=== PATIENT | female | born 1975 | race Caucasian/White ===

== ENCOUNTER 2017-04-03 00:38 | Inpatient (IN) | payer BC, OTHER ==
[~2017-04-03] VITALS: Ht 165.1 cm; Wt 80.1 kg
[2017-04-03] VITALS (9 sets, daily range): BP systolic 109–134; BP diastolic 66–77; PULSE 64–86; TEMP 36.5–36.9; O2SAT 97–100; Ht 165.1 cm; Wt 80.1 kg
[2017-04-03] MEDS ORDERED: SODIUM CHLORIDE 0.9% 1000ML 1,000 ML IV STA ×2 (00:51)
[2017-04-03] MEDS ORDERED: MoRPHine SULFATE 4 MG/ML 1 ML CARP\\VIAL IV STA (00:51)
[2017-04-03] MEDS ORDERED: ONDANSETRON INJ 2 MG/ML 2 ML VIAL IV STA ×2 (00:51→02:11)
[2017-04-03 01:41] LABS: BASO % 0.4 %; BASO ABS # 0.04 K/uL (0-0.2); COMPLETE YES; EOS % 3.4 %; HEMATOCRIT 41.5 % (37-47); IG% 0.2 %; LYMPH % 24.5 %; LYMPH ABS # 2.79 K/uL (1.2-3.4); MEAN CORPUSCULAR HEMOGLOBIN 32.7 pg (25-34); MEAN CORPUSCULAR HGB CONC 34.5 g/dl (32-36); MEAN PLATELET VOLUME 11.1 fL (7.4-10.4); MONO % 7.3 %; NEUT % 64.2 %; PLATELET COUNT 248 K/uL (130-400); RED BLOOD COUNT 4.37 M/uL (4.2-5.4); WHITE BLOOD COUNT 11.41 K/uL (4.8-10.8)
[2017-04-03 02:04] LABS: ALT/SGPT 26 U/L (12-78); AST/SGOT 16 U/L (15-37); BLOOD UREA NITROGEN 14 mg/dl (7-18); BUN/CREATININE RATIO 18.6 (10-20); CALCIUM 8.5 mg/dl (8.5-10.1); CARBON DIOXIDE 31 mmol/L (21-32); CHLORIDE 110 mmol/L (98-107); CREATININE 0.75 mg/dl (0.60-1.20); GLUCOSE 98 mg/dl (70-99); POTASSIUM 3.4 mmol/L (3.5-5.1); SODIUM 142 mmol/L (136-145)
[2017-04-03 02:09] LABS: ALKALINE PHOSPHATASE 78 U/L (45-117)
[2017-04-03] MEDS ORDERED: HYDROmorphone INJ 0.5 MG/0.5 ML SYR IV STA (02:11)
[2017-04-03 02:19] LABS: PREG INTERNAL NEGATIVE QC NEG CLEAR BACKGROUND; PREG INTERNAL POSITIVE QC POS CONTROL LINE
[2017-04-03] MEDS ORDERED: ATOR-22 PO (02:23)
[2017-04-03] MEDS ORDERED: PRLSR20 PO (02:23)
[2017-04-03] MEDS ORDERED: METOCLOPRAMIDE HCL INJ 5 MG/ML 2 ML VIAL IV STA (02:41)
[2017-04-03] MEDS ORDERED: DiphenhydrAMINE HCL 50 MG/ML VIAL IV STA (03:02)
[2017-04-03] MEDS ORDERED: ONDANSETRON INJ 2 MG/ML 2 ML VIAL IV PRN ×2 (03:15→08:15)
[2017-04-03] MEDS ORDERED: HYDROmorphone INJ 1 MG/ML SYR IV PRN (03:15)
[2017-04-03] MEDS ORDERED: CEFOXITIN 2000MG/60 ML D5W IV STA (03:21)
--- NOTE | 2017-04-03 03:36 | History and Physical ---
History & Physical Date Apr 03, 2017. Chief Complaint Right upper quadrant abdominal pain, nausea and vomiting History of Present Illness Davion Reis is a 41 year old woman who presents to the ED with complaint of right upper quadrant pain associated with nausea and vomiting. Patient states the pain first started 3 days ago, and has occurred every evening since that time. Prior to 3 days ago, she has never had the pain before. She was evaluated by her PCP at the onset of the pain, at which time a RUQ U/S was completed; per patient, the study was normal. She continued to have the pain every evening. Tonight the pain was more severe and associated with nausea and vomiting, so she presented to the ED. Pain does not seem to be associated with any certain foods. She has had intermittent episodes of diarrhea over the past few days, denies melena / hematochezia / acholic stools. Denies fever, chills, headaches, dizziness, vision changes, chest pain, SOB, dysuria or urinary symptoms, pain / numbness / swelling / tingling in extremities. Past history of a laparoscopic tubal ligation, no history of issues with anesthesia or bleeding complications. Past Medical/Surgical History Medical History: Hyperlipidemia Lumbago Tobacco use disorder Surgical History: Laparoscopic bilateral tubal ligation Allergies Coded Allergies: No Known Allergies (Verified , 04/03/17) Home Medications Scheduled Atorvastatin (Lipitor), 20 MG PO DAILY Omeprazole (Prilosec), 20 MG PO DAILY Physical Examination Skin: warm/dry, no rash Eyes: normal inspection, sclerae normal Head: normocephalic, atraumatic Neck: supple Respiratory/Chest: lungs clear, normal breath sounds, no respiratory distress Cardiovascular: regular rate, rhythm Abdomen / GI: normal bowel sounds, + pertinent finding (Tenderness to palpation in epigastric area, soft, no rebound / guarding) Back: normal inspection Extremities: normal inspection Neurologic/Psych: alert, oriented x 3 Addiitonal Comments: Lab Studies: WBC 11.41, Hgb 14.3, Hct 41.5, plt 248 Na 142, K 3.4, Cl 110, CO2 31, BUN 14, Cr 0.75, Glucose 98 Tbili 0.2 (Direct <0.1), AST 16, ALT 26, ALP 78, Lipase 177 Troponin <0.015 BHcg negative Imagin04/03/17 RUQ U/S: -Gallbladder wall thickening measuring 6.2mm with pericholecystic fluid and possible gallstone -Sonographic Velasco's sign negative -Normal CBD - measures 3mm -Concerning for acute cholecystitis 04/03/17 CXR: No acute abnormalities Diagnosis Acute Cholecystitis ASA Classification: ASA Class I Plan of Treatment Assessment: Davion Reis is a 41 year old woman who presents with symptoms and imaging findings consistent with acute cholecystitis. She has a mild leukocytosis without fever / chills; does not have elevation in bilirubin or liver enzymes to suggest biliary obstruction. Plan: -Admit to General Surgery service -Will plan for laparoscopic, possible open cholecystectomy -Pain and nausea control as needed -NPO for procedure, IVF hydration
[2017-04-03] MEDS: D5W AND 1/2NSS + 20MEQ KCL 1,000 ML IV SCH ×3 (06:00→20:42)
--- NOTE | 2017-04-03 06:19 | EMERGENCY ROOM VISIT NOTE ---
History First contact with patient: 00:42 Chief Complaint: ABDOMINAL PAIN Stated Complaint: PAIN IN UPPER STOMACH AND BACK, VOMITING Nursing Triage Summary: R upper abdominal pain that radiates to her back. was seen by PCP for similar symptoms. and r/o gallbladder. tonight pain worse and pt is vomiting. History of Present Illness The patient is a 41 year old female who presents to the Emergency Room with complaints of Intermittent right upper quadrant pain for the past week that comes and goes in severity currently 8 out of 10. Patient had pizza tonight for dinner. Pain is 8 out of 10. Nothing makes it better or worse. Patient states occasionally it radiates to her back described as aching. Patient had ultrasound earlier this week and does not know the results. Patient states she had some diarrhea earlier this week and is now resolved. Patient saw her family care doctor earlier this week for ultrasound and blood testing. She is to follow-up in a few days. Patient denies chest pain, dyspnea, fever, chills, cough, congestion, urinary symptoms. Patient had one episode of vomiting. Nonbloody [id number] nonbilious in nature. Patient is on well water. No recent antibiotics. No recent travel. No sick contacts. Review of Systems See HPI for pertinent positives & negatives. A total of 10 systems reviewed and were otherwise negative. Past Medical/Surgical History Medical Problems: (1) Acute cholecystitis (2) Bilateral tubal ligation (3) LUMBAGO (4) OVARIAN CYST NEC/NOS (5) TOBACCO USE DISORDER Family History Heart disease MOTHER Social History Smoking Status: Current Every Day Smoker Alcohol Use: none Drug Use: none Marital Status: Housing Status: lives with family Occupation Status: employed Current/Historical Medications Scheduled Atorvastatin (Lipitor), 20 MG PO DAILY Omeprazole (Prilosec), 20 MG PO DAILY Allergies Coded Allergies: No Known Allergies (Verified , 04/03/17) Physical Exam Vital Signs Date Time Temp Pulse Resp B/P (MAP) Pulse Ox O2 Delivery O2 Flow Rate FiO2 04/03/17 02:36 128/73 04/03/17 02:33 89 99 04/03/17 02:30 128/73 04/03/17 02:18 82 23 100 04/03/17 02:13 81 29 100 04/03/17 02:12 125/70 04/03/17 01:23 82 23 97 04/03/17 01:18 84 14 99 04/03/17 01:13 79 16 98 04/03/17 01:08 81 04/03/17 01:08 78 17 98 Room Air 04/03/17 01:04 98 Room Air 04/03/17 01:03 112/65 04/03/17 00:40 36.7 84 18 149/81 97 Room Air Physical Exam VITALS: Vitals are noted on the nurse's note and reviewed by myself. Vital signs stable. GENERAL: Pleasant female, in no acute distress, nondiaphoretic, well-developed well-nourished. SKIN: The skin was without rashes, erythema, edema, or bruising. There is no tenting of the skin. Capillary reflex less than 2 seconds. HEAD: Normocephalic atraumatic. EARS: External auditory canals clear, tympanic membranes pearly irvin without erythema or effusion bilaterally. EYES: Pupils equal round and reactive to light and accommodation. Conjunctivae without injection, sclerae without icterus. Extraocular movements intact. NOSE: Patent, turbinates without inflammation or discharge. MOUTH: Mucous membranes moist. Pharynx without erythema or exudate. Uvula midline. Airway patent. Tongue does not deviate. NECK: Supple without nuchal rigidity. No lymphadenopathy. No thyromegaly. Cervical spine is nontender. No JVD. HEART: Regular rate and rhythm without murmurs gallops or rubs. LUNGS: Clear to auscultation bilaterally without wheezes, rales or rhonchi. No dullness to percussion. No retractions or accessory muscle use. ABDOMEN: Positive bowel sounds x 4. Normal tympanic percussion. Soft, tender to palpation right upper quadrant, no CVA tenderness, without masses or organomegaly. No guarding or rebound tenderness. MUSCULOSKELETAL: No muscle atrophy, erythema, or edema noted. NEURO: Patient was alert and oriented to person place and time. Normal sensation to light and sharp touch. No focal neurological deficits. Medical Decision & Procedures Laboratory Results 04/03/17 01:07 Red Blood Count 4.37, Mean Corpuscular Volume 95.0, Mean Corpuscular Hemoglobin 32.7, Mean Corpuscular Hemoglobin Concent 34.5, Mean Platelet Volume 11.1, Neutrophils (%) (Auto) 64.2, Lymphocytes (%) (Auto) 24.5, Monocytes (%) (Auto) 7.3, Eosinophils (%) (Auto) 3.4, Basophils (%) (Auto) 0.4, Neutrophils # (Auto) 7.34, Lymphocytes # (Auto) 2.79, Monocytes # (Auto) 0.83, Eosinophils # (Auto) 0.39, Basophils # (Auto) 0.04 04/03/17 01:07 Test 04/03/17 01:07 White Blood Count 11.41 K/uL (4.8-10.8) Red Blood Count 4.37 M/uL (4.2-5.4) Hemoglobin 14.3 g/dL (12.0-16.0) Hematocrit 41.5 % (37-47) Mean Corpuscular Volume 95.0 fL (80-100) Mean Corpuscular Hemoglobin 32.7 pg (25-34) Mean Corpuscular Hemoglobin Concent 34.5 g/dl (32-36) Platelet Count 248 K/uL (130-400) Mean Platelet Volume 11.1 fL (7.4-10.4) Neutrophils (%) (Auto) 64.2 % Lymphocytes (%) (Auto) 24.5 % Monocytes (%) (Auto) 7.3 % Eosinophils (%) (Auto) 3.4 % Basophils (%) (Auto) 0.4 % Neutrophils # (Auto) 7.34 K/uL (1.4-6.5) Lymphocytes # (Auto) 2.79 K/uL (1.2-3.4) Monocytes # (Auto) 0.83 K/uL (0.11-0.59) Eosinophils # (Auto) 0.39 K/uL (0-0.5) Basophils # (Auto) 0.04 K/uL (0-0.2) RDW Standard Deviation 42.9 fL (36.4-46.3) RDW Coefficient of Variation 12.5 % (11.5-14.5) Immature Granulocyte % (Auto) 0.2 % Immature Granulocyte # (Auto) 0.02 K/uL (0.00-0.02) Anion Gap 1.0 mmol/L (3-11) Est Creatinine Clear Calc Drug Dose 105.3 ml/min Estimated GFR () 116.4 Estimated GFR (Non- 100.4 BUN/Creatinine Ratio 18.6 (10-20) Calcium Level 8.5 mg/dl (8.5-10.1) Total Bilirubin 0.2 mg/dl (0.2-1) Direct Bilirubin < 0.1 mg/dl (0-0.2) Aspartate Amino Transf (AST/SGOT) 16 U/L (15-37) Alanine Aminotransferase (ALT/SGPT) 26 U/L (12-78) Alkaline Phosphatase 78 U/L (45-117) Troponin I < 0.015 ng/ml (0-0.045) Total Protein 6.5 gm/dl (6.4-8.2) Albumin 3.2 gm/dl (3.4-5.0) Lipase 177 U/L (73-393) Human Chorionic Gonadotropin, Qual NEG (NEG) Medications Administered Medications (Trade) Dose Ordered Sig/Nhi Route Start Time Stop Time Status Last Admin Dose Admin Sodium Chloride 1,000 ml @ 999 mls/hr Q1H1M STAT IV 04/03/17 00:51 04/03/17 01:51 DC 04/03/17 01:11 999 MLS/HR Sodium Chloride 1,000 ml @ 125 mls/hr Q8H STAT IV 04/03/17 00:51 04/03/17 04:49 DC 04/03/17 02:23 125 MLS/HR Morphine Sulfate (MoRPHine SULFATE INJ) 4 mg NOW STAT IV 04/03/17 00:51 04/03/17 00:53 DC 04/03/17 01:15 4 MG Ondansetron HCl (Zofran Inj) 4 mg NOW STAT IV 04/03/17 00:51 04/03/17 00:53 DC 04/03/17 01:13 4 MG Hydromorphone HCl (Dilaudid Inj) 0.5 mg NOW STAT IV 04/03/17 02:11 04/03/17 02:12 DC 04/03/17 02:18 0.5 MG Ondansetron HCl (Zofran Inj) 4 mg NOW STAT IV 04/03/17 02:11 04/03/17 02:12 DC 04/03/17 02:16 4 MG Metoclopramide HCl (Reglan Inj) 5 mg NOW STAT IV 04/03/17 02:41 04/03/17 02:42 DC 04/03/17 02:47 5 MG Diphenhydramine HCl (Benadryl Inj) 12.5 mg NOW STAT IV 04/03/17 03:02 04/03/17 03:03 DC 04/03/17 03:14 12.5 MG Cefoxitin Sodium (Mefoxin 2000mg/ 60 ml D5W) 2,000 mg NOW STAT IV 04/03/17 03:21 04/03/17 03:22 DC 04/03/17 03:53 2,000 MG ED Course Prior records/ancillary studies reviewed. Triage Nursing notes reviewed. Additional history obtained from family The patient's history was concerning for abdominal pain. Differential diagnosis: Etiologies such as appendicitis, diverticulitis, PUD, biliary pathology, UTI, pancreatitis, obstruction, mesenteric ischemia, aortic pathology, infections, inflammatory bowel disease, renal colic, as well as others were entertained. Physical examination findings: As above. ER treatment provided: Morphine, Zofran, IV fluids On reassessment the patient felt better. Diagnostics interpreted by me: I obtain the records from [facility] and reviewed the patient's ultrasound report and laboratory testing. Patient had lactoferrin in her stool which appears to be a benign finding. Patient had no Escherichia coli or Campylobacter in her stool. Electrolyte panel was negative for acute findings. Ultrasound showed a contracted gallbladder with mildly thickened wall. ECG: Normal sinus, normal intervals, no acute ST-T wave changes. Impression normal sinus rhythm interpreted by myself The labs revealed neg trop Mild leukocytosis. Stable H&H Imaging studies: Ultrasound concerning for acute cholecystitis per stat radiology. Gallbladder wall thickening at 6.2 mm with pericholecystic fluid present Chest x-ray with no acute consolidation, pneumothorax or free air per my interpretation Consultation: A consultation was placed with the GS, Dr Gaytan. The case was discussed and diagnostics were reviewed. The patient was evaluated in the ER for further treatment. Exam and history seem consistent with acute cholecystitis. Patient was evaluated by surgery. She will be admitted to their service. Patient was well- appearing. She is neurovascularly and neurologically intact. She is afebrile and nontoxic.By the evaluation outlined above emergent etiologies such as appendicitis, diverticulitis, UTI, pancreatitis, obstruction, mesenteric ischemia, aortic pathology, infections, inflammatory bowel disease, renal colic , as well as others were deemed relatively unlikely. The pt informed about the findings as listed above. All questions were answered and pleased with the treatment. . Case reviewed with my attending. Medical Decision As above Impression Primary Impression: Acute cholecystitis Departure Information Dispostion Being Evaluated By Surgeon Condition GOOD Referrals Kim Cuevas M.D. (PCP) Patient Instructions My [facility]
--- NOTE | 2017-04-03 06:32 | DIAGNOSTIC IMAGING REPORT ---
CHEST ONE VIEW PORTABLE CLINICAL HISTORY: Atypical chest pain COMPARISON STUDY: No previous studies for comparison. FINDINGS: The cardiac and mediastinal contours are normal. There is no evidence of focal pulmonary consolidation. There is no evidence of failure. No pleural effusions are visualized.[ A small linear focus the left lung base is felt to be atelectatic. IMPRESSION: No active disease in the chest. Electronically signed by: Ta Clements M.D. 04/03/2017 6:31 AM Dictated Date/Time: 04/03/2017 6:31 AM
--- NOTE | 2017-04-03 07:08 | DIAGNOSTIC IMAGING REPORT ---
ABDOMINAL ULTRASOUND, RIGHT UPPER QUADRANT HISTORY: Right upper quadrant abdominal pain, ? GB. COMPARISON: Abdominal ultrasound 10/10/2012. FINDINGS: Pancreas: The pancreatic tail is obscured by overlying bowel gas. The remaining portions of the pancreas are within normal limits. Liver: Unremarkable. Gallbladder: Gallbladder wall thickening measuring up to 6 mm. No definite gallstones. Punctate echogenic focus of the gallbladder fundus may represent a polyp or cholesterol deposit. This measures 3 mm. Trace pericholecystic fluid versus gallbladder wall edema. The technologist reported a negative sonographic Velasco sign. CBD: 3 mm. Right kidney: No hydronephrosis. IMPRESSION: Gallbladder wall thickening with trace pericholecystic fluid versus gallbladder wall edema. The technologist reported a negative sonographic Velasco sign. No definite gallstones. Therefore, this is consistent with nonspecific gallbladder wall thickening which could be due to cholecystitis, underlying hepatic abnormality, pancreatitis or possibly diffuse edematous state. Clinical correlation recommended. Electronically signed by: Chuck Dave M.D. 04/03/2017 7:07 AM Dictated Date/Time: 04/03/2017 7:04 AM
[2017-04-03] MEDS ORDERED: HYDROmorphone INJ 2 MG/ML SYR/VIAL IV PRN (08:15)
[2017-04-03] MEDS ORDERED: EpHEDrine SULFATE INJ 50 MG/ML AMP IV PRN (08:15)
[2017-04-03] MEDS ORDERED: ATROPINE SULFATE 0.1 MG/ML 5ML SYR IV PRN (08:15)
[2017-04-03] MEDS ORDERED: PHENYLEPHRINE 100MCG/ML 5ML SYR IV PRN (08:15)
[2017-04-03] MEDS ORDERED: ONDANSETRON INJ 2 MG/ML 2 ML VIAL ONE (08:41)
[2017-04-03] MEDS ORDERED: LIDOCAINE HCL 2% 2 ML VIAL (20MG/ML) ONE (08:41)
[2017-04-03] MEDS ORDERED: DEXAMETHASONE SOD INJ 4 MG/ML VIAL ONE (08:41)
[2017-04-03] MEDS ORDERED: FENTANYL CITRATE INJ 50 MCG/1 ML 2 ML VIAL ONE ×2 (08:42)
[2017-04-03] MEDS ORDERED: GLYCOPYRROLATE INJ 0.2 MG/ML VIAL ONE (08:42)
[2017-04-03] MEDS ORDERED: MIDAZOLAM HCL 1 MG/ML 2ML VIAL ONE (08:42)
[2017-04-03] MEDS ORDERED: NEOSTIGMINE METHYLSULFATE 1 MG/ML 10ML VIAL ONE (08:42)
[2017-04-03] MEDS ORDERED: PROPOFOL IV EMULSION 10 MG/ML 20 ML VIAL IV ONE ×2 (08:42→11:28)
[2017-04-03] MEDS ORDERED: ROCURONIUM BROMIDE 10 MG/ML 5 ML VIAL ONE (08:42)
[2017-04-03] MEDS ORDERED: LIDOCAINE HCL 1% 20 ML VIAL ONE (09:02)
[2017-04-03] MEDS ORDERED: BUPIVACAINE 0.5 % 5 MG/1 ML MPF 30ML VIAL ONE (09:02)
[2017-04-03] MEDS ORDERED: CEFAZOLIN SOD 1 GM VIAL ONE (09:28)
[2017-04-03] MEDS ORDERED: KETOROLAC TROMETHAMINE 30 MG/ML VIAL ONE (10:56)
--- NOTE | 2017-04-03 11:58 | [facility] Operative Report ---
Operative Report Operative Date Apr 03, 2017. Pre-Operative Diagnosis Acute Cholecystitis Post-Operative Diagnosis Acute Cholecystitis Procedure(s) Performed Laparoscopic Cholecystectomy Surgeon Jessica Clancy MD Investigator Vice Surgeon(s) Sandy Sam PA-C Estimated Blood Loss 10 mL Findings Gallbladder was edematous and distended. Liver appeared normal. Fluids 1500cc Specimens A: Gallbladder Drains None Anesthesia GETA, 40cc Local (1%Lidocaine + 1/2%Marcaine 50/50% mix) Complication(s) None Disposition Recovery Room / PACU Indications Davion Reis is a 41 year old woman who was admitted with acute cholecystitis. Indications, risks, benefits and potential complications of laparoscopic, possible open cholecystectomy were discussed in detail with the patient. All questions answered to apparent satisfaction. Patient chose to proceed with surgery and freely signed the consent form. Description of Procedure Patient was brought to the operating room and identified as Davion Reis, 79. She was placed on the operating table in supine position. Anesthesia was induced and the patient was intubated without difficutly. The abdomen was prepped and draped in the usual sterile fashion. An incision was made at the umbilicus and carried down through subcutaneous tissue. Fascia was identified and two Sisi clamps were placed for upward traction. The fascia was opened using sharp dissection. Peritoneum was then identified and elevated using two hemostats. The peritoneum was incised using Metzenbaum scissors to enter the abdomen. A 12mm Lan port was placed and insufflation established. The abdomen was explored. The gallbladder was observed to be edematous and distended. The liver appeared normal. A 5mm port was placed under direct vision subxiphoid. Two more 5mm ports were placed approximately 4cm below along the right costal margin. The patient was positioned in the reverse Trendelenburg position with left side down to expose the area of dissection. The gallbladder dome was grasped and retracted cranially. The neck of the gallbladder was grasped and retracted laterally. Omental adhesions were taken down gently using blunt dissection. The cystic artery was found overlying the cystic duct anteriorly; this was carefully dissected out using [place] graspers. The cystic duct was identified laterally and deep to the cystic artery; this was also dissected out carefully until liver was clearly visible between and behind the two structures to verify the critical view of safety. The cystic artery was then clipped and cut. The cystic duct was also clearly visualized as the only structure going into the gallbladder; this was also clipped and cut. Next the gallbladder was taken off the liver bed using electrocautery. The 10mm endoscope was switched out for the 5mm endoscope, and the 10mm endocatch bag was placed in the abdomen. The gallbladder was placed in the endocatch bag and removed from the abdomen, to be passed off the field to be taken to pathology. The gallbladder fossa was inspected; No active bleeding or bile was observed. The area was thoroughly irrigated and evacuated of fluid. Hemostasis was again verified. The ports were then removed under direct vision and insufflation was released. The sponge and instrument counts were verified to be correct x 2 by the nurse in charge. Fascia at the umbilical port was closed using 0 Vicryl in figure of eight fashion. Skin was closed at all ports using Monocryl, and Dermabond was applied. The patient was then awakened from anesthesia, extubated without difficulty and was taken to PACU, having suffered no untoward events. I attest to the content of the Intraoperative Record and any orders documented therein. Any exceptions are noted below.
[2017-04-03] MEDS ORDERED: OXYCODONE/ACETAMINOPHEN 5-325 TAB PO PRN ×2 (12:00)
[2017-04-03] MEDS: HYDROmorphone INJ 2 MG/ML SYR/VIAL IV PRN ×2 (12:20→12:25)
--- NOTE | 2017-04-03 13:35 | Anesthesiology Progress Note ---
Anesthesia Post Op Note Date & Time Apr 03, 2017 at 13:35 Vital Signs Pain Intensity: 4 Vital Signs Past 12 Hours Date Time Temp Pulse Resp B/P (MAP) Pulse Ox O2 Delivery O2 Flow Rate FiO2 04/03/17 13:02 66 13 100 04/03/17 13:02 68 13 04/03/17 13:00 128/63 04/03/17 12:57 64 17 04/03/17 12:57 66 17 100 04/03/17 12:55 130/62 04/03/17 12:52 75 15 04/03/17 12:52 76 15 100 04/03/17 12:50 132/53 04/03/17 12:47 68 16 100 04/03/17 12:47 36.9 04/03/17 12:47 67 16 04/03/17 12:45 126/58 04/03/17 12:42 65 19 04/03/17 12:42 66 19 100 04/03/17 12:41 69 12 04/03/17 12:41 69 12 100 04/03/17 12:40 132/63 04/03/17 12:36 66 16 04/03/17 12:36 65 16 100 04/03/17 12:35 135/68 04/03/17 12:31 66 19 100 04/03/17 12:31 66 19 04/03/17 12:30 124/69 04/03/17 12:28 63 17 100 04/03/17 12:28 65 17 04/03/17 12:26 125/65 04/03/17 12:23 80 21 04/03/17 12:23 80 21 95 04/03/17 12:21 119/56 04/03/17 12:18 73 16 100 04/03/17 12:18 73 16 04/03/17 12:15 137/74 04/03/17 12:13 83 19 04/03/17 12:13 84 19 100 04/03/17 12:10 138/63 04/03/17 12:08 80 17 04/03/17 12:08 83 17 100 04/03/17 12:05 137/73 04/03/17 12:03 36.2 69 16 137/73 100 Mask 10 04/03/17 12:03 74 22 04/03/17 12:03 74 22 136/65 100 04/03/17 07:33 99 Room Air 04/03/17 07:27 36.7 76 14 110/66 (81) 99 Room Air 04/03/17 04:34 36.5 86 14 109/67 99 Room Air 04/03/17 04:15 Room Air 04/03/17 04:01 75 20 129/83 97 04/03/17 03:57 84 20 148/80 96 Room Air 04/03/17 02:36 128/73 04/03/17 02:33 89 99 04/03/17 02:30 128/73 04/03/17 02:18 82 23 100 04/03/17 02:13 81 29 100 04/03/17 02:12 125/70 Notes Mental Status: alert / awake / arousable, participated in evaluation Pt Amnestic to Procedure: Yes Nausea / Vomiting: adequately controlled Pain: adequately controlled Airway Patency, RR, SpO2: stable & adequate BP & HR: stable & adequate Hydration State: stable & adequate Anesthetic Complications: no major complications apparent
[2017-04-03] MEDS ORDERED: NURSING VERBAL MED ORDER ONE (18:15)
[2017-04-03] MEDS ORDERED: NICOTINE 21 MG/24 HR TDSY TD SCH (19:00)
[2017-04-04 03:47] VITALS: BP 108/68; PULSE 73; TEMP 36.8; O2SAT 97
[2017-04-04] MEDS: D5W AND 1/2NSS + 20MEQ KCL 1,000 ML IV SCH ×2 (04:30→13:05)
[2017-04-04 07:03] VITALS: BP 97/42; PULSE 64; TEMP 36.5; O2SAT 98
[2017-04-04 07:45] VITALS: O2SAT 98
--- NOTE | 2017-04-04 07:55 | Surgery Progress Note ---
Surgery Progress Note Date of Service Apr 04, 2017. Subjective Post OP Day: 1 Patient examined at bedside this morning. Afebrile, vitals stable overnight on room air, no acute events. States she feels sore - has not taken any pain medications since surgery. Has not yet been out of bed. Encouraged pain medication use to help with pain so she can ambulate. Tolerating clear liquids since surgery, has not tried regular diet yet. Objective Vital Signs: Date Time Temp Pulse Resp B/P (MAP) Pulse Ox O2 Delivery O2 Flow Rate FiO2 04/04/17 07:03 36.5 64 16 97/42 (60) 98 Room Air 04/04/17 03:47 36.8 73 16 108/68 (81) 97 Room Air 04/03/17 22:45 36.6 86 16 134/77 (96) 98 Room Air 04/03/17 19:30 Room Air 04/03/17 16:15 69 16 113/70 (84) 100 Nasal Cannula 2.0 04/03/17 15:45 Nasal Cannula 2.0 04/03/17 15:15 68 18 110/67 (81) 100 Nasal Cannula 2.0 04/03/17 14:15 36.8 68 12 117/68 (84) 100 Nasal Cannula 2.0 04/03/17 13:49 36.9 64 12 130/71 (90) 100 Room Air 04/03/17 13:15 36.9 73 16 118/72 (87) 97 Nasal Cannula 2.0 04/03/17 13:15 97 Nasal Cannula 2.0 04/03/17 13:15 97 Nasal Cannula 04/03/17 13:02 66 13 100 04/03/17 13:02 68 13 04/03/17 13:00 128/63 04/03/17 12:57 64 17 04/03/17 12:57 66 17 100 04/03/17 12:55 130/62 04/03/17 12:52 75 15 04/03/17 12:52 76 15 100 04/03/17 12:50 132/53 04/03/17 12:47 68 16 100 04/03/17 12:47 36.9 04/03/17 12:47 67 16 04/03/17 12:45 126/58 04/03/17 12:42 65 19 04/03/17 12:42 66 19 100 04/03/17 12:41 69 12 04/03/17 12:41 69 12 100 04/03/17 12:40 132/63 04/03/17 12:36 66 16 04/03/17 12:36 65 16 100 04/03/17 12:35 135/68 04/03/17 12:31 66 19 100 04/03/17 12:31 66 19 04/03/17 12:30 124/69 04/03/17 12:28 63 17 100 04/03/17 12:28 65 17 04/03/17 12:26 125/65 04/03/17 12:23 80 21 04/03/17 12:23 80 21 95 04/03/17 12:21 119/56 04/03/17 12:18 73 16 100 04/03/17 12:18 73 16 04/03/17 12:15 137/74 04/03/17 12:13 83 19 04/03/17 12:13 84 19 100 04/03/17 12:10 138/63 04/03/17 12:08 80 17 04/03/17 12:08 83 17 100 04/03/17 12:05 137/73 04/03/17 12:03 36.2 69 16 137/73 100 Mask 10 04/03/17 12:03 74 22 04/03/17 12:03 74 22 136/65 100 General Appearance: WD/WN, no apparent distress Head: normocephalic, atraumatic Neck: supple Respiratory/Chest: lungs clear, no respiratory distress Cardiovascular: regular rate, rhythm Abdomen: normal bowel sounds, non distended, soft, + tenderness (appropriately tender to palpation) Incision(s): clean, dry, intact Laboratory Results: Results Past 24 Hours Test 04/04/17 07:22 Range/Units Assessment & Plan Davion Reis is a 41 year old woman admitted with acute cholecystitis who is now POD 1 s/p laparoscopic cholecystectomy. There were no complications, patient tolerated the procedure well. -Pain control as needed -Diet as tolerated -Discontinue IVF when tolerating PO diet -Encouraged ambulation -Discharge to home later today if tolerates diet and pain is adequately controlled. -Will follow up in surgery clinic in 1 to 2 weeks for post op check. Jessica Clancy MD 04/04/17
[2017-04-04] MEDS ORDERED: PANTOprazole SOD 40 MG TAB PO SCH (09:00)
[2017-04-04] MEDS ORDERED: ATORVASTATIN 20 MG TAB PO SCH ×2 (09:00→21:00)
[2017-04-04 09:35] LABS: HEMATOCRIT 38.8 % (37-47); MEAN CORPUSCULAR HEMOGLOBIN 32.5 pg (25-34); MEAN CORPUSCULAR HGB CONC 33.5 g/dl (32-36); MEAN PLATELET VOLUME 11.1 fL (7.4-10.4); PLATELET COUNT 212 K/uL (130-400); WHITE BLOOD COUNT 13.51 K/uL (4.8-10.8)
--- NOTE | 2017-04-04 09:39 | Anesthesiology Progress Note ---
Anesthesia Post Op Note Date & Time Apr 04, 2017 at 09:39 Vital Signs Pain Intensity: 2.0 Vital Signs Past 12 Hours Date Time Temp Pulse Resp B/P (MAP) Pulse Ox O2 Delivery O2 Flow Rate FiO2 04/04/17 07:03 36.5 64 16 97/42 (60) 98 Room Air 04/04/17 03:47 36.8 73 16 108/68 (81) 97 Room Air 04/03/17 22:45 36.6 86 16 134/77 (96) 98 Room Air Notes Mental Status: alert / awake / arousable, participated in evaluation Pt Amnestic to Procedure: Yes Nausea / Vomiting: adequately controlled Pain: adequately controlled Airway Patency, RR, SpO2: stable & adequate BP & HR: stable & adequate Hydration State: stable & adequate Anesthetic Complications: no major complications apparent
[2017-04-04] MEDS ORDERED: ACETAMINOPHEN 325 MG TAB PO PRN (11:00)
[2017-04-04] MEDS ORDERED: ACETAMINOPHEN 325 MG TAB ONE (11:24)
[2017-04-04 11:54] VITALS: BP 97/42; PULSE 64; TEMP 36.5; O2SAT 98
--- NOTE | 2017-04-04 13:12 | Discharge Instructions ---
Discharge Instructions Date of Service Apr 04, 2017. Admission Reason for Admission: Acute Cholecystitis Discharge Discharge Diagnosis / Problem: same Discharge Goals Goal(s): Decrease discomfort, Improve function Activity Recommendations Activity Limitations: as noted below No strenuous activity or heavy lifting over 10 pounds for 2 weeks Walking and light activity is encouraged No submerging incisions underwater for 2 weeks (no swimming, hot tubs, or bathing) No driving while taking narcotic pain medication until you are pain free . Instructions / Follow-Up Instructions / Follow-Up You may shower in 24 hours, gently clean incisions with soap and water Surgical glue (purple) will come off on its own You will need follow-up with Dr. Clancy in 1-2 weeks please call office at to make an appointment Current Hospital Diet Patient's current hospital diet: Regular Diet Discharge Diet Recommended Diet: Regular Diet Procedures Procedures Performed: Laparoscopic Cholecystectomy Pending Studies Studies pending at discharge: yes List of pending studies: Gallbladder pathology- will be reviewed at follow-up visit Medical Emergencies . Who to Call and When: Medical Emergencies: If at any time you feel your situation is an emergency, please call 911 immediately. . Non-Emergent Contact Non-Emergency issues call your: Primary Care Provider, Surgeon Call Non-Emergent contact if: you have a fever, temperature is above 101.5, your pain is not controlled, your pain is worsening, wound has increased drainage, wound has increased redness, wound has increased pain . "Provider Documentation" section prepared by Sandy Sam. . VTE Core Measure Inpt VTE Proph given/why not?: SCD's [place] Drug Monitoring Program Search Results: patient reviewed within database, no issues identified
[2017-04-04 15:32] VITALS: BP 109/65; PULSE 74; TEMP 36.6; O2SAT 98
[2017-04-04] MEDS ORDERED: TRAM-10 PO (15:34)
--- NOTE | 2017-04-07 09:30 | Discharge Summary ---
Discharge Summary Dates Admission Date / Time: Apr 03, 2017 at 03:46 Discharge Date: Apr 04, 2017 Dispostion / Condition Discharge Disposition: Home Condition at Discharge: Good Principal Diagnosis (1) Acute cholecystitis Problem List (1) Acute cholecystitis (2) Migraine (3) OVARIAN CYST NEC/NOS (4) LUMBAGO Consultations / Procedures Consultations: None Procedures: Laparoscopic cholecystectomy Pending Studies / Follow-Up pathology of gallbladder- will be reviewed at follow-up visit Medication Reconciliation New Medications: Tramadol (Ultram) 50 Mg Tab 50 MG PO Q4H PRN for Pain, #30 TAB Continued Medications: Atorvastatin (Lipitor) 20 Mg Tab 20 MG PO HS, TAB Omeprazole (Prilosec) 20 Mg Capcr 20 MG PO DAILY, CAP Admission HPI Per the Admitting provider: Davion Reis is a 41 year old woman who presents to the ED with complaint of right upper quadrant pain associated with nausea and vomiting. Patient states the pain first started 3 days ago, and has occurred every evening since that time. Prior to 3 days ago, she has never had the pain before. She was evaluated by her PCP at the onset of the pain, at which time a RUQ U/S was completed; per patient, the study was normal. She continued to have the pain every evening. Tonight the pain was more severe and associated with nausea and vomiting, so she presented to the ED. Pain does not seem to be associated with any certain foods. She has had intermittent episodes of diarrhea over the past few days, denies melena / hematochezia / acholic stools. Denies fever, chills, headaches, dizziness, vision changes, chest pain, SOB, dysuria or urinary symptoms, pain / numbness / swelling / tingling in extremities. Past history of a laparoscopic tubal ligation, no history of issues with anesthesia or bleeding complications. Hospital Course (1) Acute cholecystitis Patient was taken to operating room on 04/03/2017 for laparoscopic cholecystectomy possible open by Dr. Clancy. She tolerated procedure well without any complications and was transferred to recovery room in stable condition. She was then transferred to med/surg floor for post operative care. Post-op orders included IV fluids, IV pain medication and po Percocet as needed for pain, IV Zofran, clear liquid diet, and po home medication including pantoprazole and atorvastatin. On evening of POD # 0 patient did not eat much since surgery and was not taking anything for pain or ambulating therefore she was kept one evening for pain control and observation. POD # 1 she still had not had much to eat for breakfast, advised to ambulate and was given Tylenol for pain as she did not want to take any narcotics. Patient was re-evaluated in the afternoon, pain controlled with Tylenol, tolerated regular diet for lunch , and urinating and ambulating without difficulty. She was discharged home on POD # 1 with PO Tramadol as needed for pain. Discharge Instructions as given to patient Copies To Primary Care Provider: Kim Cuevas M.D..
== END 2017-04-04 16:20 | disposition home or self-care (01) | DRG 419 ==
LOC: C.EDB 00:39 → C.MSN 03:46 → ENRESERV 03:53
PROVIDERS: ADMIT Student in an Organized Health Care Education/Training Program; ATTEND Student in an Organized Health Care Education/Training Program
PROC: 0FT44ZZ Resection of Gallbladder, Percutaneous Endoscopic Approach (ICD-10-PCS; principal; 2017-04-03 08:45)
DX: K81.0 Acute cholecystitis (principal); F17.200 Nicotine dependence, unspecified, uncomplicated; E78.5 Hyperlipidemia, unspecified; G43.909 Migraine, unspecified, not intractable, without status migrainosus; N83.209 Unspecified ovarian cyst, unspecified side